=== PATIENT | female | born 1955 | race Caucasian/White ===

== ENCOUNTER 2017-11-25 11:19 | Outpatient (CLI) | payer OTHER ==
[2017-11-25 12:58] LABS: THYROID STIMULATING HORMONE 1.11 uIU/mL (0.34-5.60)
[2017-11-25 13:00] LABS: FREE T4 (FREE THYROXINE) 0.9 ng/dL (0.58-1.64)
== END 2017-11-25 11:20 | disposition home or self-care (01) ==
LOC: LAB 11:19
PROVIDERS: ATTEND Physician Assistant
DX: M17.11 Unilateral primary osteoarthritis, right knee (principal); E04.1 Nontoxic single thyroid nodule; E06.3 Autoimmune thyroiditis; Z45.2 Encounter for adjustment and management of vascular access device
CPT/HCPCS: 36415; 84439; 84443

== ENCOUNTER 2018-11-19 09:13 | Emergency (ER) | payer OTHER ==
[2018-11-19 09:19] VITALS: BP 141/82
[2018-11-19] MEDS ORDERED: CHERRY SYRUP 10 ML UDC PO ONE (09:56)
[2018-11-19] MEDS ORDERED: DEXAMETHASONE 10 MG/ML VIAL PO STA (09:56)
--- NOTE | 2018-11-19 09:59 | ED Physician Documentation ---
PD HPI URI - Stated complaint Stated Complaint: CHEST CONGESTION/COUGHING - Chief complaint Chief Complaint: Resp - History obtained from History obtained from: Patient - History of Present Illness Timing - onset: How many weeks ago (1) Timing duration: Weeks (1) Timing details: Gradual onset, Still present Associated symptoms: Fever, Nasal congestion, Rhinorrhea, Sore throat, Swollen nodes, Productive cough, Dyspnea Contributing factors: Sick contact Improves by: Rest, Medication Worsened by: Activity Similar symptoms before: Diagnosis (bronchitis and pneumonia) Recently seen: Not recently seen - Additional information Additional information: 63-year old previously healthy female with a prior history of reactive airway disease has developed a cough and congestion over the past week. She has been coughing up some yellow and green phlegm and this is now been harder to cough up. She is developed some shortness of breath and she has developed some co ughing paroxysms that are severe. She has had similar issue previously and has had to be on prednisone several years ago. She is recently moved to the area from [place] does not have a local physician. 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 - Present Medications Home Medications: Ambulatory Orders Medication Instructions Recorded Confirmed Albuterol Sulf [Ventolin Hfa 1 - 2 puffs INH Q4HR PRN #1 inhaler 11/19/18 Inhaler] Benzonatate [Tessalon Perle] 100 - 200 mg PO TID PRN #30 capsule 11/19/18 Doxycycline Hyclate 100 mg PO BID #20 capsule 11/19/18 - Allergies Allergies/Adverse Reactions: Allergies Allergy/AdvReac Type Severity Reaction Status Date / Time amoxicillin Allergy Unknown Verified 11/19/18 09:20 erythromycin base Allergy Nausea Verified 11/19/18 09:20 - Social History Does the pt smoke?: No Smoking Status: Never smoker Does the pt drink ETOH?: Yes Does the pt have substance abuse?: No - Immunizations Immunizations are current?: Yes PD ED PE NORMAL - Vitals Vital signs reviewed: Yes (hypertensive mild ) - General General: Alert and oriented X 3, Well developed/nourished, Other (periodic coughing paroxysms) - HEENT HEENT: Atraumatic, PERRL, EOMI, Ears normal, Moist mucous membranes, Pharynx benign - Neck Neck: Supple, no meningeal sign, No bony TTP - Cardiac Cardiac: RRR, No murmur - Respiratory Respiratory: No respiratory distress, Other (scattered wheezes and rhonchi mild ) - Abdomen Abdomen: Soft, Non tender - Back Back: No CVA TTP, No spinal TTP - Derm Derm: Normal color, Warm and dry, No rash - Extremities Extremities: No deformity, No edema - Neuro Neuro: Alert and oriented X 3, sewing machine repairer 2-12 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 Subcentimeter nodular opacity overlying the right lung apex is indeterminate for pulmonary nodule or artifact, such as from sclerotic osseous density. If there is no prior studies available for comparison, chest CT is suggested for further evaluation. This can be performed on a nonemergent basis. 2 Otherwise no acute cardiopulmonary abnormality. ), EMP read indepedently, See rad report PD MEDICAL DECISION MAKING - ED course Complexity details: reviewed results, re-evaluated patient, considered differential, d/w patient ED course: 63-year-old female with cough congestion and reactive airway has no evidence of the pneumonia on her chest x-ray and here in the emergency department she is administered dexamethasone 10 mg orally as she is not wanting to take a course of prednisone. We will place her on some azithromycin and provide an inhaler as well as Tessalon. Departure - Departure Disposition: 01 Home, Self Care Clinical Impression: Bronchitis Condition: Stable Instructions: ED Bronchitis Asthmatic Follow-Up: [facility] - [place], [place] [Provider Group] Prescriptions: Albuterol Sulf [Ventolin Hfa Inhaler] 1 - 2 puffs INH Q4HR PRN #1 inhaler PRN Reason: Shortness Of Air/Wheezing Benzonatate [Tessalon Perle] 100 - 200 mg PO TID PRN #30 capsule PRN Reason: Cough Doxycycline Hyclate 100 mg PO BID #20 capsule
--- NOTE | 2018-11-19 09:59 | XRAY Report ---
Reason: cough, congestion, SOA Procedure Date: 11/19/2018 Accession Number: [id number] / [id number] Procedure: XR - Chest 2 View X-Ray CPT Code: 40655 FULL RESULT: EXAM: CHEST RADIOGRAPHY EXAM DATE: 11/19/2018 09:35 AM. CLINICAL HISTORY: Cough, congestion, SOA. COMPARISON: None. TECHNIQUE: 2 views. FINDINGS: Lungs/Pleura: No focal airspace opacity. There is a 6 mm nodular opacity overlying the right apex, which also overlies the right anterior first rib and the clavicle. No pleural effusion or pneumothorax. Mediastinum: Cardiomediastinal silhouette is within normal limits. Pulmonary vasculature is unremarkable. Other: Mild multilevel degenerative changes are present in the thoracic spine. IMPRESSION: 1. Subcentimeter nodular opacity overlying the right lung apex is indeterminate for pulmonary nodule or artifact, such as from sclerotic osseous density. If there are no prior studies available for comparison, chest CT is suggested for further evaluation. This can be performed on a nonemergent basis. 2. Otherwise no acute cardiopulmonary abnormality. RADIA
== END 2018-11-19 10:15 | disposition home or self-care (01) ==
LOC: ED 09:13
DX: J40 Bronchitis, not specified as acute or chronic (principal)
CPT/HCPCS: 71046; 99281; 99283; A9270

== ENCOUNTER 2019-03-23 14:15 | Outpatient (CLI) | payer OTHER ==
[2019-03-23 16:13] LABS: ALBUMIN 4.4 g/dL (3.2-5.5); ALBUMIN/GLOBULIN RATIO 1.4 (1.0-2.2); ALKALINE PHOSPHATASE 97 IU/L (42-121); ALT ALANINE AMINOTRANSFERASE 24 IU/L (10-60); AST ASPARTATE AMINOTRANSFERASE 24 IU/L (10-42); BILIRUBIN,TOTAL 0.6 mg/dL (0.2-1.0); BUN - BLOOD UREA NITROGEN 35 mg/dL (6-20); CALCIUM 10.2 mg/dL (8.5-10.3); CARBON DIOXIDE - CO2 25 mmol/L (21-32); CHLORIDE 104 mmol/L (101-111); CHOL/HDL RATIO 4.5 (<4.4); CHOLESTEROL 243 mg/dL; CREATININE 0.8 mg/dL (0.4-1.0); GFR - MDRD 72 (>89); GLUCOSE 137 mg/dL (70-100); HDL CHOLESTEROL 54 mg/dL; LDL CHOLESTEROL,CALCULATED 156 mg/dL; LDL/HDL RATIO 2.9 (<4.4); SODIUM 139 mmol/L (135-145); TOTAL PROTEIN 7.6 g/dL (6.7-8.2); VLDL CHOLESTEROL 33 mg/dL
[2019-03-23 16:29] LABS: HEMOGLOBIN A1C 0.53 g/dL; HEMOGLOBIN A1C % 5.6 % (4.6-6.2)
== END 2019-03-23 14:16 | disposition home or self-care (01) ==
LOC: LAB 14:15
PROVIDERS: ATTEND Internal Medicine
DX: E03.9 Hypothyroidism, unspecified (principal); R63.5 Abnormal weight gain
CPT/HCPCS: 36415; 80053; 80061; 83036; 83721; 84443

== ENCOUNTER 2019-08-08 23:36 | Emergency (ER) | payer OTHER ==
--- NOTE | 2019-08-08 23:40 | ED Physician Documentation ---
History of Present Illness - Stated complaint Stated Complaint: FEMALE - History obtained from History obtained from: Patient (the patient is a 63 y/o f who p/w a cc of dysuria, she states she completed a course of nitrofurantoin recently and felt like she was improving however no she reports dysuria, frequency and urgency. she denies fevers or flank pain.) Review of Systems Constitutional: reports: Reviewed and negative Eyes: reports: Reviewed and negative Ears: reports: Reviewed and negative Nose: reports: Reviewed and negative Throat: reports: Reviewed and negative Cardiac: reports: Reviewed and negative Respiratory: reports: Reviewed and negative GI: reports: Reviewed and negative : reports: Dysuria, Frequency Skin: reports: Reviewed and negative Musculoskeletal: reports: Reviewed and negative Neurologic: reports: Reviewed and negative Psychiatric: reports: Reviewed and negative Endocrine: reports: Reviewed and negative Immunocompromised: reports: Reviewed and negative PD PAST MEDICAL HISTORY - Past Medical History Endocrine/Autoimmune: HyPOthyroidism, Other - Past Surgical History 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 - Present Medications Home Medications: Ambulatory Orders Medication Instructions Recorded Confirmed Albuterol Sulf [Ventolin Hfa 1 - 2 puffs INH Q4HR PRN #1 inhaler 11/19/18 Inhaler] Benzonatate [Tessalon Perle] 100 - 200 mg PO TID PRN #30 capsule 11/19/18 Doxycycline Hyclate 100 mg PO BID #20 capsule 11/19/18 Cephalexin [Keflex] 500 mg PO QID #28 capsule 08/09/19 - Allergies Allergies/Adverse Reactions: Allergies Allergy/AdvReac Type Severity Reaction Status Date / Time amoxicillin Allergy Unknown Verified 08/08/19 23:51 erythromycin base Allergy Nausea Verified 08/08/19 23:51 - Social History Does the pt smoke?: No Smoking Status: Never smoker Does the pt drink ETOH?: Yes Does the pt have substance abuse?: No - Immunizations Immunizations are current?: Yes PD ED PE NORMAL - Vitals Vital signs reviewed: Yes - General General: Alert and oriented X 3, No acute distress, Well developed/nourished - HEENT HEENT: Atraumatic, PERRL, EOMI - Neck Neck: Supple, no meningeal sign, No bony TTP - Cardiac Cardiac: RRR, No murmur, Strong equal pulses - Respiratory Respiratory: No respiratory distress, Clear bilaterally - Abdomen Abdomen: Normal bowel sounds, Soft, Non tender, Non distended, Other (suprapubic ttp) - Back Back: No CVA TTP, No spinal TTP - Derm Derm: Normal color, Warm and dry, No rash - Extremities Extremities: No deformity - Neuro Neuro: Alert and oriented X 3, mobile patrol officer 2-12 intact, No motor deficit, No sensory deficit, Normal speech - Psych Psych: Normal mood, Normal affect Results - Vitals Vitals: Vital Signs - 24 hr 08/08/19 23:40 Heart Rate 78 Respiratory 16 Rate Blood Pressure 142/87 H O2 Saturation 97 Oxygen O2 Source Room air - Labs Labs: Laboratory Tests 08/08/19 23:53 Urine Color BROWN Urine Clarity CLOUDY Urine pH 5.5 Ur Specific Couch >=1.030 H Urine Protein 100 H Urine Glucose (UA) NEGATIVE Urine Ketones TRACE Urine Occult Blood LARGE H Urine Nitrite POSITIVE H Urine Bilirubin NEGATIVE Urine Urobilinogen 1 (NORMAL) Ur Leukocyte Esterase LARGE H Urine RBC TNTC H Urine WBC >25 H Ur Epithelial Cells FEW Renal Tubular Ur Squamous Epith Cells NONE SEEN Urine Bacteria Moderate H Ur Microscopic Review INDICATED Urine Culture Comments INDICATED Departure - Departure Disposition: 01 Home, Self Care Clinical Impression: Urinary tract infection Qualifiers: Urinary tract infection type: acute cystitis Hematuria presence: with hematuria Qualified Code(s): N30.01 - Acute cystitis with hematuria Condition: Good Instructions: ED UTI Cystitis Female Follow-Up: CHACHO CREWS MD [Primary Care Provider] - 08/09/19 Prescriptions: Cephalexin [Keflex] 500 mg PO QID #28 capsule
[2019-08-09] LABS: GLUCOSE, URINE (UA) NEGATIVE (NEGATIVE); KETONES,URINE (UA) TRACE mg/dL (NEGATIVE); LEUKOCYTE ESTERASE, URINE LARGE (NEGATIVE); NITRITE,URINE POSITIVE (NEGATIVE); OCCULT BLOOD,URINE LARGE (NEGATIVE); PH,URINE 5.5 PH (5.0-7.5); PROTEIN,URINE 100 mg/dL (NEGATIVE); UROBILINOGEN,URINE 1 (NORMAL) E.U./dL (NORMAL)
[2019-08-09 00:16] LABS: BACTERIA,URINE Moderate /HPF (None Seen); BILIRUBIN,URINE NEGATIVE (NEGATIVE); CLARITY,URINE CLOUDY (CLEAR); EPITHELIAL CELLS,UR FEW Renal Tubular /HPF (<= Few); ICTOTEST,URINE NEGATIVE; RBC,URINE TNTC /HPF (0-5); SQUAMOUS EPITHELIAL CELL,UR NONE SEEN (<= Few)
[2019-08-09] MEDS ORDERED: cephALEXin 250 MG CAPSULE PO STA (00:22)
[2019-08-09 00:53] VITALS: BP 138/88
== END 2019-08-09 00:51 | disposition home or self-care (01) ==
LOC: ED 23:36
DX: N30.01 Acute cystitis with hematuria (principal)
CPT/HCPCS: 81001; 87086; 87181; 99283; A9270; 81003

== ENCOUNTER 2023-01-24 10:41 | Outpatient (CLI) | payer OTHER ==
[2023-01-24 11:19] LABS: THYROID STIMULATING HORMONE 1.34 uIU/mL (0.34-5.60)
== END 2023-01-24 10:42 | disposition home or self-care (01) ==
LOC: LAB 10:41
PROVIDERS: ATTEND Family Medicine
DX: E03.9 Hypothyroidism, unspecified (principal)
CPT/HCPCS: 36415; 84443